=== PATIENT | male | born 1990 | race American Indian/Alaskan Native ===

== ENCOUNTER 2018-03-05 16:34 | Emergency (ER) | payer OTHER, BC ==
[2018-03-05 16:49] VITALS: RESP 18; TEMP 98.6; BMI 25.7
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
[2018-03-05 18:46] VITALS: BP 138/87; PULSE 67; O2SAT 100
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
== END 2018-03-05 18:46 | disposition home or self-care (01) ==
LOC: ED 16:34
DX: S16.1XXA Strain of muscle, fascia and tendon at neck level, initial encounter (principal); S39.012A Strain of muscle, fascia and tendon of lower back, initial encounter; V49.49XA Driver injured in collision with other motor vehicles in traffic accident, initial encounter; Y92.410 Unspecified street and highway as the place of occurrence of the external cause